=== PATIENT | female | born 1955 | race Caucasian/White ===

== ENCOUNTER 2025-01-16 19:16 | Inpatient (IN) | payer MEDICAID ==
[~2025-01-16] VITALS: Ht 154.9 cm; Wt 74.9 kg
[2025-01-16] MEDS: ONDANSETRON HCL 4MG/2ML INJ IV STA (20:54)
[2025-01-16] MEDS: MORPHINE SULFATE 4 MG/ML INJ (FOR IV/IM USE) IV STA (20:54)
[2025-01-16 21:16] LABS: HEMATOCRIT. 33.5 % (36.0-48.0); HEMOGLOBIN. 10.4 g/dL (12.0-16.0); MEAN CORPUSCULAR HEMOGLOBIN 27.7 pg (28.0-32.0); MEAN CORPUSCULAR VOLUME 89.3 fL (81.0-99.0); MEAN PLATELET VOLUME 7.5 fl (7.4-10.4); PLATELET 201 x1000/uL (130-400); RED BLOOD CELL COUNT 3.75 mill/uL (4.2-5.4); RED CELL DISTRIBUTION WIDTH 18.3 % (11.6-14.6); WHITE BLOOD COUNT 18.6 x1000/uL (4.5-11.0)
[2025-01-16 21:18] LABS: DIFFERENTIAL COMMENT 1
[2025-01-16 21:23] LABS: CHLORIDE 101 mEq/L (98-107); SODIUM 136 mEq/L (136-145)
[2025-01-16 21:24] LABS: CARBON DIOXIDE 18 mEq/L (21-32)
[2025-01-16 21:25] LABS: CALCIUM 8.5 mg/dL (8.7-10.4)
[2025-01-16 21:29] LABS: CREATININE 1.1 mg/dL (0.6-1.0); GLUCOSE 60 mg/dL (70-105)
[2025-01-16 21:30] LABS: INR 1.2; PROTHROMBIN TIME 12.4 sec (9.6-11.0); UREA NITROGEN BLOOD 12 mg/dL (9-23)
[2025-01-16 21:31] LABS: ALANINE AMINOTRANSFERASE 15 IU/L (10-49); ASPARTATE AMINOTRANSFERASE 31 IU/L (<34)
[2025-01-16 21:32] LABS: BILIRUBIN DIRECT 0.3 mg/dL (<=3.0); BILIRUBIN TOTAL 0.8 mg/dL (0.1-1.0); PROTEIN TOTAL 5.9 g/dL (6.0-8.3)
[2025-01-16 21:37] LABS: ANISOCYTOSIS 1+; PLATELET ESTIMATE NORMAL
[2025-01-16] MEDS: SODIUM CHLORIDE 0.9% 1,000 ML IV ONE (22:22)
[2025-01-16] MEDS: PIPERACILLIN/TAZO 3.375G/50ML 50 ML IV ONE (23:14)
[2025-01-16] MEDS: VANCOMYCIN 1G PREMIX 200 ML IV ONE (23:22)
[2025-01-16] MEDS ORDERED: MAGNESIUM/ALUMINUM HYDROXIDE/SIMETHICONE 30ML UDC PO PRN (23:30)
[2025-01-16] MEDS ORDERED: IPRATROPIUM/ALBUTEROL 0.5-3(2.5)MG/3ML NEB HHN PRN (23:30)
[2025-01-16] MEDS ORDERED: KETOROLAC 30MG/ML VIAL IV PRN (23:30)
[2025-01-16 23:55] LABS: CHLORIDE 104 mEq/L (98-107); SODIUM 138 mEq/L (136-145)
[2025-01-16 23:56] LABS: CARBON DIOXIDE 19 mEq/L (21-32)
[2025-01-16 23:57] LABS: CALCIUM 7.6 mg/dL (8.7-10.4)
[2025-01-17 00:01] LABS: GLUCOSE 66 mg/dL (70-105); IRON 16 ug/dL (50-170)
[2025-01-17] MEDS: POTASSIUM CHLORIDE 20MEQ/PACKET PO SCH ×2 (00:01→01:24)
[2025-01-17 00:02] LABS: UREA NITROGEN BLOOD 14 mg/dL (9-23)
[2025-01-17 00:04] LABS: TOTAL IRON BINDING CAPACITY 262 ug/dl (250-425)
[2025-01-17 00:07] LABS: FERRITIN 28 ng/mL (10-291); FOLIC ACID (FOLATE) SERUM 5.37 ng/mL (>5.38)
[2025-01-17 00:14] LABS: POTASSIUM 2.8 mEq/L (3.5-5.1)
[2025-01-17 00:16] LABS: VITAMIN B12 SERUM > 2000 pg/mL (211-911)
[2025-01-17] MEDS ORDERED: DEXTROSE 50% WATER 50ML SYRINGE IV PRN (00:30)
[2025-01-17] MEDS: PANTOPRAZOLE SODIUM 40 MG/VIAL IV SCH (01:24)
[2025-01-17] MEDS: DEXT 5%/0.45% NACL 1000ML 1,000 ML IV SCH (01:25)
[2025-01-17 01:40] VITALS: BP 116/75; PULSE 94; RESP 20; TEMP 36.7
[2025-01-17] MEDS: MAGNESIUM 1 G PREMIX 100 ML IV SCH (02:03)
[2025-01-17] MEDS ORDERED: KETOROLAC 15MG/ML VIAL IV PRN (02:30)
[2025-01-17 04:00] VITALS: BP 116/59; PULSE 97; RESP 18; TEMP 36.4; O2SAT 100
[2025-01-17] MEDS: PIPERACILLIN/TAZO 3.375G/50ML 50 ML IV SCH (05:27)
[2025-01-17 06:42] LABS: HEMOGLOBIN. 10.3 g/dL (12.0-16.0); MEAN CORPUSCULAR HEMOGLOBIN 28.2 pg (28.0-32.0); MEAN CORPUSCULAR HGB CONC 31.2 g/dL (31.0-37.0); MEAN CORPUSCULAR VOLUME 90.2 fL (81.0-99.0); MEAN PLATELET VOLUME 7.4 fl (7.4-10.4); PLATELET 177 x1000/uL (130-400); RED BLOOD CELL COUNT 3.66 mill/uL (4.2-5.4); WHITE BLOOD COUNT 18.7 x1000/uL (4.5-11.0)
[2025-01-17 06:46] LABS: CHLORIDE 105 mEq/L (98-107); POTASSIUM 4.5 mEq/L (3.5-5.1); SODIUM 139 mEq/L (136-145)
[2025-01-17 06:47] LABS: CALCIUM 8.1 mg/dL (8.7-10.4); CARBON DIOXIDE 21 mEq/L (21-32)
[2025-01-17 06:51] LABS: CREATINE KINASE MB FRACTION 2.2 ng/mL (0.5-3.6); TROPONIN I HIGH SENSITIVITY 26 ng/L (3.0-34)
[2025-01-17 06:52] LABS: CREATININE 1.1 mg/dL (0.6-1.0); GLUCOSE 112 mg/dL (70-105); TRIGLYCERIDE 188 mg/dL (0-150); UREA NITROGEN BLOOD 13 mg/dL (9-23)
[2025-01-17 06:53] LABS: LDL CHOLESTEROL 121 mg/dL (5-100)
[2025-01-17 06:54] LABS: CHOLESTEROL 180 mg/dL (<200); HDL CHOLESTEROL < 20 mg/dL (>65); PHOSPHORUS 2.4 mg/dL (2.5-4.9)
[2025-01-17 06:55] LABS: CREATINE KINASE 58 IU/L (34-145); DIFFERENTIAL COMMENT 1
[2025-01-17 06:56] LABS: T4 FREE 1.69 ng/dL (0.89-1.76); THYROID STIMULATING HORMONE 0.33 uIU/mL (0.55-4.78)
[2025-01-17 08:00] VITALS: BP 116/57; PULSE 118; RESP 20; TEMP 37.1; O2SAT 96
[2025-01-17] MEDS ORDERED: GABA-529 PO (08:28)
[2025-01-17] MEDS ORDERED: LOSA25TA26 PO (08:28)
[2025-01-17] MEDS ORDERED: ATOR40TA70 PO (08:28)
[2025-01-17] MEDS: ENOXAPARIN 30MG/0.3ML SYR SUBCUT SCH (08:57)
[2025-01-17] MEDS: FOLIC ACID/VITAMIN B COMP W-C TABLET PO SCH (09:00)
[2025-01-17 12:00] VITALS: BP 102/53; PULSE 111; RESP 18; TEMP 38; O2SAT 95
[2025-01-17 13:18] LABS: PLATELET ESTIMATE NORMAL
[2025-01-17 13:19] LABS: ANISOCYTOSIS 2+
[2025-01-17 16:00] VITALS: BP_SYST 90; BP_SYST 96; BP_DIAS 45; BP_DIAS 51; PULSE 87; RESP 20; TEMP 38.2; O2SAT 100
[2025-01-17] MEDS: BLOOD SUGAR DIAGNOSTIC STRIP TEST SCH (17:40)
[2025-01-17 18:42] LABS: CREATINE KINASE MB FRACTION 0.6 ng/mL (0.5-3.6)
[2025-01-17 20:00] VITALS: BP 96/46; PULSE 116; RESP 17; TEMP 37.5; O2SAT 95
[2025-01-17] MEDS: ONDANSETRON HCL 4MG/2ML INJ IV PRN (20:20)
[2025-01-18] VITALS: BP 100/57; PULSE 112; RESP 17; TEMP 37.6; O2SAT 96
[2025-01-18 04:00] VITALS: BP 92/51; PULSE 113; RESP 19; TEMP 37.2; O2SAT 98
[2025-01-18 07:03] LABS: HEMATOCRIT. 28.4 % (36.0-48.0); HEMOGLOBIN. 9.2 g/dL (12.0-16.0); MEAN CORPUSCULAR HEMOGLOBIN 27.9 pg (28.0-32.0); MEAN CORPUSCULAR HGB CONC 32.4 g/dL (31.0-37.0); MEAN CORPUSCULAR VOLUME 86.1 fL (81.0-99.0); MEAN PLATELET VOLUME 7.8 fl (7.4-10.4); PLATELET 162 x1000/uL (130-400); RED CELL DISTRIBUTION WIDTH 18.2 % (11.6-14.6); WHITE BLOOD COUNT 22.4 x1000/uL (4.5-11.0)
[2025-01-18 07:11] LABS: CHLORIDE 106 mEq/L (98-107); POTASSIUM 3.4 mEq/L (3.5-5.1); SODIUM 136 mEq/L (136-145)
[2025-01-18 07:12] LABS: CALCIUM 7.6 mg/dL (8.7-10.4); CARBON DIOXIDE 20 mEq/L (21-32)
[2025-01-18 07:17] LABS: GLUCOSE 149 mg/dL (70-105); UREA NITROGEN BLOOD 18 mg/dL (9-23)
[2025-01-18 07:19] LABS: PHOSPHORUS 1.2 mg/dL (2.5-4.9)
[2025-01-18 07:23] LABS: DIFFERENTIAL COMMENT 1
[2025-01-18 07:30] LABS: CREATININE 1.9 mg/dL (0.6-1.0)
[2025-01-18 08:05] VITALS: BP 87/45; PULSE 109; RESP 20; TEMP 36.8; O2SAT 100
[2025-01-18 11:58] VITALS: BP 96/58; PULSE 106; RESP 19; TEMP 36.7; O2SAT 100
[2025-01-18] MEDS ORDERED: POTASSIUM CHLORIDE 20MEQ TABLET SR PO SCH (13:00)
[2025-01-18 13:04] LABS: PLATELET ESTIMATE NORMAL
[2025-01-18 13:05] LABS: ANISOCYTOSIS 2+
[2025-01-18] MEDS: METRONIDAZOLE 500 MG PREMIX 100 ML IV SCH (13:11)
[2025-01-18] MEDS: SODIUM CHLORIDE 0.9% 1,000 ML IV SCH (13:11)
[2025-01-18] MEDS: POTASSIUM PHOSPHATE 15 MMOL in DEXT 5% WATER 245 ML IV SCH (14:29)
[2025-01-18] MEDS: MAGNESIUM 2 G PREMIX 50 ML IV SCH (14:30)
[2025-01-18 16:25] VITALS: BP 83/39; PULSE 110; RESP 20; TEMP 36.9; O2SAT 97
[2025-01-18 16:42] LABS: LACTIC ACID 3.8 mmol/L (0.4-2.0)
[2025-01-18] MEDS: SODIUM CHLORIDE 0.9% (SEPSIS BOLUS) IV ONE (18:30)
[2025-01-18 19:02] LABS: GLUCOSE URINE NEGATIVE (NEGATIVE); KETONES URINE TRACE (NEGATIVE); LEUKOCYTE ESTERASE URINE NEGATIVE (NEGATIVE); NITRITE URINE NEGATIVE (NEGATIVE); OCCULT BLOOD URINE NEGATIVE (NEGATIVE); PROTEIN URINE 1+ (NEGATIVE); SPECIFIC GRAVITY URINE 1.025 (1.005-1.030)
[2025-01-18 19:21] LABS: POTASSIUM URINE RANDOM 78.7 mEq/L
[2025-01-18 19:27] LABS: CLARITY URINE HAZY (CLEAR); COLOR URINE YELLOW (YELLOW)
[2025-01-18 19:28] LABS: CREATININE URINE RANDOM 127.5 mg/dL
[2025-01-18 19:29] LABS: *AMPHETAMINES SCREEN URINE NEGATIVE (NEGATIVE); *BARBITURATES SCREEN URINE NEGATIVE (NEGATIVE); *BENZODIAZEPINES SCREEN URINE NEGATIVE (NEGATIVE); *COCAINE SCREEN URINE NEGATIVE (NEGATIVE); BACTERIA URINE TRACE; CANNABINOID URINE SCREEN NEGATIVE (NEGATIVE); ECSTASY MDMA SCREEN URINE NEGATIVE (NEGATIVE); METHADONE URINE SCREEN NEGATIVE (NEGATIVE); OPIATES URINE SCREEN PRESUMPTIVE POSITIVE (NEGATIVE); PHENCYCLIDINE URINE SCREEN NEGATIVE (NEGATIVE); RBC URINE NONE SEEN /hpf (0-2); SQUAMOUS EPITHELIAL CELL URINE 2+ /lpf (RARE/1+); WBC URINE 0-2 /hpf (0-2)
[2025-01-18 19:30] LABS: COARSE GRANULAR CASTS URINE 0-5 /lpf
[2025-01-18 20:00] VITALS: BP 92/49; PULSE 106; RESP 17; TEMP 37.1; O2SAT 96
[2025-01-18] MEDS: MIDODRINE HCL 5MG TABLET PO SCH (20:28)
[2025-01-18] MEDS: POTASSIUM CHLORIDE 20MEQ TABLET SR PO SCH (21:47)
[2025-01-19] VITALS: BP 90/47; PULSE 102; RESP 18; TEMP 36.9; O2SAT 95
[2025-01-19 04:00] VITALS: BP 93/45; PULSE 104; RESP 18; TEMP 36.7; O2SAT 97
[2025-01-19] MEDS: ONDANSETRON HCL 4MG/2ML INJ IV PRN (05:24)
[2025-01-19 06:42] LABS: POTASSIUM 3.3 mEq/L (3.5-5.1)
[2025-01-19 06:43] LABS: HEMATOCRIT. 28.4 % (36.0-48.0); MEAN CORPUSCULAR HEMOGLOBIN 28.2 pg (28.0-32.0); MEAN CORPUSCULAR HGB CONC 31.9 g/dL (31.0-37.0); MEAN CORPUSCULAR VOLUME 88.4 fL (81.0-99.0); MEAN PLATELET VOLUME 8.6 fl (7.4-10.4); PLATELET 196 x1000/uL (130-400); RED BLOOD CELL COUNT 3.21 mill/uL (4.2-5.4); RED CELL DISTRIBUTION WIDTH 18.2 % (11.6-14.6); WHITE BLOOD COUNT 27.3 x1000/uL (4.5-11.0)
[2025-01-19 06:45] LABS: DIFFERENTIAL COMMENT 1
[2025-01-19 06:48] LABS: CREATININE 1.8 mg/dL (0.6-1.0)
[2025-01-19 08:02] VITALS: BP 88/43; PULSE 101; RESP 20; TEMP 36.7; O2SAT 97
[2025-01-19] MEDS: POTASSIUM CHLORIDE 20MEQ TABLET SR PO SCH (09:22)
[2025-01-19] MEDS: ENOXAPARIN 40MG/0.4ML SYR SUBCUT SCH (09:24)
[2025-01-19 10:41] LABS: PLATELET ESTIMATE NORMAL
[2025-01-19 10:55] LABS: PHOSPHORUS 2.3 mg/dL (2.5-4.9)
[2025-01-19 11:50] VITALS: BP 120/42; PULSE 88; RESP 19; TEMP 36.7; O2SAT 96
[2025-01-19] MEDS: ACETAMINOPHEN 650MG/20.3ML UDC PO PRN (12:49)
[2025-01-19 16:24] VITALS: BP 89/47; PULSE 91; RESP 18; TEMP 36.6; O2SAT 99
[2025-01-19] MEDS: GUAIFENESIN 600MG ER TABLET PO SCH (17:55)
[2025-01-19 20:00] VITALS: BP 84/47; PULSE 75; RESP 16; TEMP 36.4; O2SAT 96
[2025-01-20] VITALS: BP 73/43; PULSE 71; RESP 19; TEMP 36.6; O2SAT 98
[2025-01-20 04:00] VITALS: BP 134/111; PULSE 71; RESP 17; TEMP 36.3; O2SAT 94
[2025-01-20 06:41] LABS: HEMATOCRIT. 26.4 % (36.0-48.0); HEMOGLOBIN. 8.4 g/dL (12.0-16.0); MEAN CORPUSCULAR HEMOGLOBIN 28.1 pg (28.0-32.0); MEAN CORPUSCULAR VOLUME 87.9 fL (81.0-99.0); MEAN PLATELET VOLUME 8.5 fl (7.4-10.4); PLATELET 175 x1000/uL (130-400); RED CELL DISTRIBUTION WIDTH 18.5 % (11.6-14.6)
[2025-01-20 06:46] LABS: DIFFERENTIAL COMMENT 1
[2025-01-20 06:54] LABS: INR 1.3; PROTHROMBIN TIME 13.6 sec (9.6-11.0)
[2025-01-20 06:59] LABS: POTASSIUM 3.5 mEq/L (3.5-5.1)
[2025-01-20 07:00] LABS: CALCIUM 6.8 mg/dL (8.7-10.4)
[2025-01-20 07:05] LABS: CREATININE 2.1 mg/dL (0.6-1.0)
[2025-01-20 08:00] VITALS: BP 100/56; PULSE 68; RESP 20; TEMP 37.2; O2SAT 96
[2025-01-20 08:43] LABS: ANISOCYTOSIS 1+; HYPOCHROMASIA 1+; PLATELET ESTIMATE NORMAL
[2025-01-20 11:43] LABS: *CREATININE RANDOM URINE 126.7 mg/dL (Not Estab.); MICROALBUMIN RANDOM URINE 35.9 ug/mL (Not Estab.)
[2025-01-20 12:00] VITALS: BP 90/66; PULSE 75; RESP 20; TEMP 36.7; O2SAT 97
[2025-01-20] MEDS ORDERED: DEXTROSE 50% WATER 50ML SYRINGE IV ONE (17:05)
[2025-01-20] MEDS ORDERED: ONDANSETRON HCL 4MG/2ML INJ IV PRN (17:30)
[2025-01-20] MEDS ORDERED: GLYCOPYRROLATE 0.2 MG/ML 2ML VIAL IV PRN (17:30)
[2025-01-20 20:00] VITALS: BP 91/48; PULSE 77; RESP 18; TEMP 36.7; O2SAT 100
[2025-01-21] VITALS: BP 93/50; PULSE 98; RESP 19; TEMP 36.6; O2SAT 99
[2025-01-21 04:00] VITALS: BP 107/63; PULSE 64; RESP 20; TEMP 36.4; O2SAT 94
[2025-01-21] MEDS: DEXTROSE 50% WATER 50ML SYRINGE IV PRN (05:55)
[2025-01-21 06:32] LABS: BASOPHILS % 0.5 % (0.0-2.0); EOSINOPHILS % 2.3 % (0.0-5.0); HEMATOCRIT. 32.7 % (36.0-48.0); HEMOGLOBIN. 10.5 g/dL (12.0-16.0); LYMPHOCYTES % 9.9 % (20.0-50.0); MEAN CORPUSCULAR HEMOGLOBIN 28.2 pg (28.0-32.0); MEAN CORPUSCULAR HGB CONC 31.9 g/dL (31.0-37.0); MEAN CORPUSCULAR VOLUME 88.4 fL (81.0-99.0); MEAN PLATELET VOLUME 8.8 fl (7.4-10.4); MONOCYTES % 7.9 % (2.0-8.0); NEUTROPHILS % 79.4 % (40.0-76.0); PLATELET 221 x1000/uL (130-400); WHITE BLOOD COUNT 14.7 x1000/uL (4.5-11.0)
[2025-01-21 06:37] LABS: POTASSIUM 3.6 mEq/L (3.5-5.1)
[2025-01-21 06:38] LABS: CALCIUM 7.1 mg/dL (8.7-10.4)
[2025-01-21 06:43] LABS: CREATININE 1.7 mg/dL (0.6-1.0)
[2025-01-21 08:00] VITALS: BP 114/61; PULSE 103; RESP 20; TEMP 36.4; O2SAT 97
[2025-01-21] MEDS: SUCRALFATE 1G TABLET PO SCH (09:04)
[2025-01-21] MEDS: PANTOPRAZOLE SODIUM 40 MG/VIAL IV SCH (09:04)
[2025-01-21 12:00] VITALS: BP 120/76; PULSE 99; RESP 18; TEMP 36.2; O2SAT 98
[2025-01-21 16:00] VITALS: BP 108/60; PULSE 98; RESP 18; TEMP 37.1; O2SAT 98
[2025-01-21 20:00] VITALS: BP 152/80; PULSE 97; RESP 20; TEMP 36.2; O2SAT 100
[2025-01-21] MEDS: ACETAMINOPHEN 325MG TABLET PO PRN (21:12)
[2025-01-22] VITALS: BP 125/82; PULSE 92; RESP 19; TEMP 36.2; O2SAT 96
[2025-01-22 04:00] VITALS: BP 135/76; PULSE 96; RESP 20; TEMP 36.1; O2SAT 98
[2025-01-22 07:55] LABS: POTASSIUM 3.1 mEq/L (3.5-5.1)
[2025-01-22 07:56] LABS: CALCIUM 7.4 mg/dL (8.7-10.4)
[2025-01-22 08:00] VITALS: BP 116/74; PULSE 89; RESP 18; TEMP 36.3; O2SAT 100
[2025-01-22 08:01] LABS: CREATININE 1.6 mg/dL (0.6-1.0)
[2025-01-22 08:43] LABS: BASOPHILS % 0.5 % (0.0-2.0); EOSINOPHILS % 4.1 % (0.0-5.0); HEMATOCRIT. 30.2 % (36.0-48.0); LYMPHOCYTES % 11.7 % (20.0-50.0); MEAN CORPUSCULAR HEMOGLOBIN 29.2 pg (28.0-32.0); MEAN CORPUSCULAR HGB CONC 33.3 g/dL (31.0-37.0); MEAN CORPUSCULAR VOLUME 87.9 fL (81.0-99.0); MEAN PLATELET VOLUME 8.7 fl (7.4-10.4); MONOCYTES % 12.7 % (2.0-8.0); PLATELET 233 x1000/uL (130-400); RED BLOOD CELL COUNT 3.43 mill/uL (4.2-5.4); RED CELL DISTRIBUTION WIDTH 18.7 % (11.6-14.6); WHITE BLOOD COUNT 10.1 x1000/uL (4.5-11.0)
[2025-01-22] MEDS: POTASSIUM CHLORIDE 20MEQ TABLET SR PO SCH (09:16)
[2025-01-22 12:00] VITALS: BP 118/89; PULSE 89; RESP 20; TEMP 36.3; O2SAT 98
[2025-01-22] MEDS ORDERED: SUCR1TAB30 MT (13:18)
[2025-01-22] MEDS ORDERED: PANT40VI PO (13:18)
[2025-01-22] MEDS ORDERED: SUCR1TAB PO (13:18)
[2025-01-22 16:00] VITALS: BP 116/79; PULSE 98; RESP 18; TEMP 36.2; O2SAT 97
[2025-01-22 18:21] VITALS: BP 116/79; PULSE 98; TEMP 97.2; O2SAT 97
== END 2025-01-22 18:30 | disposition home or self-care (01) | DRG 720 ==
LOC: ER 19:16 → EDBEDREQ 19:46 → 7EST 21:46 → EDBEDREQ 22:05 → EDBEDREQTM 22:05 → ENRESERV 22:21 → CANRESERV 22:23 → ENRESERVTM 22:23 → ENRESERV 22:54 → 7WST 01-17 00:35
PROVIDERS: ADMIT Internal Medicine; ATTEND Internal Medicine
PROC: 0DB78ZX Excision of Stomach, Pylorus, Via Natural or Artificial Opening Endoscopic, Diagnostic (ICD-10-PCS; principal; 2025-01-20)
DX: A41.9 Sepsis, unspecified organism (principal); N17.0 Acute kidney failure with tubular necrosis; G82.50 Quadriplegia, unspecified; G93.41 Metabolic encephalopathy; E44.0 Moderate protein-calorie malnutrition; K81.0 Acute cholecystitis; D64.9 Anemia, unspecified; D49.0 Neoplasm of unspecified behavior of digestive system; E87.20 Acidosis, unspecified; K26.9 Duodenal ulcer, unspecified as acute or chronic, without hemorrhage or perforation; R18.8 Other ascites; K76.0 Fatty (change of) liver, not elsewhere classified; K76.89 Other specified diseases of liver; E16.2 Hypoglycemia, unspecified; K42.9 Umbilical hernia without obstruction or gangrene; K52.9 Noninfective gastroenteritis and colitis, unspecified; E61.1 Iron deficiency; E66.01 Morbid (severe) obesity due to excess calories; M16.11 Unilateral primary osteoarthritis, right hip; K57.30 Diverticulosis of large intestine without perforation or abscess without bleeding; E87.6 Hypokalemia; E78.1 Pure hyperglyceridemia; K29.70 Gastritis, unspecified, without bleeding; K43.9 Ventral hernia without obstruction or gangrene; N18.31 Chronic kidney disease, stage 3a; R80.9 Proteinuria, unspecified; K44.9 Diaphragmatic hernia without obstruction or gangrene; K25.9 Gastric ulcer, unspecified as acute or chronic, without hemorrhage or perforation; I12.9 Hypertensive chronic kidney disease with stage 1 through stage 4 chronic kidney disease, or unspecified chronic kidney disease; I25.10 Atherosclerotic heart disease of native coronary artery without angina pectoris; N18.9 Chronic kidney disease, unspecified; M06.9 Rheumatoid arthritis, unspecified; K82.8 Other specified diseases of gallbladder; E78.00 Pure hypercholesterolemia, unspecified; Z87.891 Personal history of nicotine dependence; Z68.33 Body mass index [BMI] 33.0-33.9, adult; Z68.31 Body mass index [BMI] 31.0-31.9, adult
CPT/HCPCS: 36415; 71045; 73521; 74176; 74181; 76700; 76770; 80048; 80061; 80076; 80305; 81003; 82043; 82550; 82553; 82570; 82607; 82728; 82746; 82962; 83036; 83540; 83550; 83605; 83735; 83880; 84100; 84133; 84134; 84145; 84300; 84439; 84443; 84484; 85025; 88305; 93005; 93970; 97110; 97162; 97166; 97530; 97535; 99285; J1650; J2270; J2405; J2470; J2543; J3370; J3475; J3490; J7030; J7060